=== PATIENT | female | born 1975 | race African-American/Black ===

== ENCOUNTER → 2019-06-14 | Outpatient (CLI) | payer BC | LOC: SJCVCIMAG 14:25 | DX: R00.0 Tachycardia, unspecified (principal); I45.10 Unspecified right bundle-branch block; E78.00 Pure hypercholesterolemia, unspecified; R05 Cough; E78.5 Hyperlipidemia, unspecified; Z82.49 Family history of ischemic heart disease and other diseases of the circulatory system; Z79.899 Other long term (current) drug therapy ==

== ENCOUNTER → 2020-02-14 | Outpatient (CLI) | payer BC, OTHER | LOC: SJCVCIMAG 13:42 | PROVIDERS: ATTEND Internal Medicine Cardiovascular Disease | DX: I34.0 Nonrheumatic mitral (valve) insufficiency (principal); E05.00 Thyrotoxicosis with diffuse goiter without thyrotoxic crisis or storm; I47.9 Paroxysmal tachycardia, unspecified ==

== ENCOUNTER → 2020-12-26 | Outpatient (CLI) | payer OTHER | LOC: CAT 13:03 | PROVIDERS: ATTEND Family Medicine | DX: Z13.6 Encounter for screening for cardiovascular disorders (principal); E78.00 Pure hypercholesterolemia, unspecified; I25.10 Atherosclerotic heart disease of native coronary artery without angina pectoris ==

== ENCOUNTER → 2021-01-10 | Outpatient (CLI) | payer OTHER | LOC: SJCVCIMAG 12:26 | PROVIDERS: ATTEND Internal Medicine Cardiovascular Disease | DX: I45.10 Unspecified right bundle-branch block (principal); R06.00 Dyspnea, unspecified; E78.5 Hyperlipidemia, unspecified; M54.40 Lumbago with sciatica, unspecified side; M43.20 Fusion of spine, site unspecified ==